=== PATIENT | female | born 2000 | race Hispanic/Latino ===

== ENCOUNTER 2020-09-20 09:01 | Emergency (ER) | payer BC ==
[~2020-09-20] VITALS: Ht 157.5 cm; Wt 67.0 kg
[~2020-09-20 09:01] MED LIST: AMOXICILLI400 MG/5 M OR; TRITAL DM OR
[2020-09-20 10:52] LABS: URINE BILIRUBIN - DIPSTICK NEGATIVE (NEGATIVE); URINE BLOOD DIPSTICK LARGE (NEGATIVE); URINE COLOR YELLOW; URINE GLUCOSE - DIPSTICK NEGATIVE (NEGATIVE); URINE KETONE NEGATIVE (NEGATIVE); URINE LEUK ESTERASE NEGATIVE (NEGATIVE); URINE PROTEIN - DIPSTICK NEGATIVE (NEG-TRACE); URINE UROBILINOGEN - DIPSTICK 0.2 E.U./dL (0.2)
[2020-09-20 10:53] LABS: URINE NITRITE - DIPSTICK NEGATIVE (Negative)
[2020-09-20 11:01] LABS: URINE SQUAMOUS EPITHELIAL CELL MODERATE EPI/hpf (0-FEW)
[2020-09-20 12:07] VITALS: BP 107/67
== END 2020-09-20 12:16 | disposition home or self-care (01) | DRG 833 ==
LOC: ED 09:01
PROVIDERS: Emergency Medicine
DX: O20.0 Threatened abortion (principal); Z3A.00 Weeks of gestation of pregnancy not specified